=== PATIENT | male | born 1930 | race Caucasian/White ===

== ENCOUNTER 2017-09-16 10:01 | Inpatient (IN) | payer MEDICARE, OTHER ==
[~2017-09-16] VITALS: Ht 167.6 cm; Wt 77.1 kg
--- NOTE | 2017-09-16 10:10 | NUR ---
PT IS IN ROOM #1B. DR GIVENS EVALUATED THE PT.
[2017-09-16] MEDS ORDERED: ATENOLOL 50 MG PO (10:11)
[2017-09-16] MEDS ORDERED: BENAZEPRIL 40 MG PO (10:11)
[2017-09-16] MEDS ORDERED: ASPI81TA31 PO (10:13)
[2017-09-16] MEDS ORDERED: MAG HYDROX/AL HYDROX/SIMETH 30 ML LIQUID UDC PO ONE (10:30)
[2017-09-16] MEDS ORDERED: PANTOPRAZOLE SODIUM 40 MG TABLET.DR PO ONE ×2 (10:30→10:57)
[2017-09-16] MEDS ORDERED: ASPIRIN 81 MG TAB.CHEW PO ONE ×2 (10:30)
[2017-09-16] MEDS ORDERED: ASPIRIN 81 MG TAB.CHEW ONE (10:56)
[2017-09-16] MEDS ORDERED: MAG HYDROX/AL HYDROX/SIMETH 30 ML LIQUID UDC ONE (10:56)
[2017-09-16 11:02] LABS: BASOPHILS % (AUTO) 0.7 % (0.0-2.0); EOSINOPHILS # (AUTO) 0.1 K/uL (0.0-0.7); EOSINOPHILS % (AUTO) 3.2 % (0.0-7.0); HEMATOCRIT 35.9 % (40-50); HEMOGLOBIN 12.1 G/DL (14.0-18.0); LYMPHOCYTES # (AUTO) 0.6 K/UL (0.8-4.8); LYMPHOCYTES % (AUTO) 17.3 % (20.5-51.5); MEAN CORPUSCULAR HEMOGLOBIN 30.3 UUG (27.0-31.0); MEAN CORPUSCULAR HGB CONC 34 g/dL (32.0-37.0); MEAN CORPUSCULAR VOLUME 90.3 FL (82.0-92.0); MONOCYTES # (AUTO) 0.5 K/UL (0.1-1.30); MONOCYTES % (AUTO) 13.2 % (0.0-11.0); NEUTROPHILS # (AUTO) 2.2 K/UL (1.8-8.9); NEUTROPHILS % (AUTO) 65.6 % (38.5-71.5); PLATELET COUNT (AUTO) 188 K/UL (150-450); RED BLOOD CELL COUNT(AUTO) 3.98 MIL/UL (4.7-6.1); WHITE BLOOD COUNT (AUTO) 3.4 K/UL (4.0-11.2)
[2017-09-16 11:04] LABS: CARBON DIOXIDE 29 mmol/L (21-32); CHLORIDE 105 mmol/L (98-107); CREATININE 1.1 mg/dL (0.6-1.3); GLUCOSE 110 mg/dL (74-106); POTASSIUM 3.9 mmol/L (3.5-5.1); UREA NITROGEN, BLOOD 25 mg/dL (7-18)
[2017-09-16 11:17] LABS: ALANINE AMINOTRANSFERASE 19 U/L (16-63); ALKALINE PHOSPHATASE 90 U/L (50-136); ASPARTATE AMINOTRANSFERASE 20 U/L (15-37); BILIRUBIN,DIRECT 0.2 mg/dL (0.0-0.2); BILIRUBIN,TOTAL 0.8 mg/dL (0.2-1.0); TOTAL PROTEIN, SERUM 6.4 g/dL (6.4-8.2)
[2017-09-16] MEDS ORDERED: ONDANSETRON 4 MG/2 ML VIAL IV PRN (12:15)
[2017-09-16] MEDS ORDERED: MORPHINE SULFATE 2 MG/1 ML DISP.SYRIN IV PRN ×2 (12:15→16:15)
[2017-09-16] MEDS ORDERED: NITROGLYCERIN 0.4 MG/TAB BOTTLE SL PRN (12:15)
[2017-09-16] MEDS ORDERED: ACETAMINOPHEN 325 MG TABLET PO PRN (12:15)
--- NOTE | 2017-09-16 12:37 | NUR ---
received from ER per stretcher awake alert and oriented with c/o chest pain since Tuesday night but denies of chest pain now, oriented to bed control and call button- verbalized understanding, initial assessment done, tele applied, SB 58, no dizziness, daughter at bedside, 2D hospital pharmacy technician here, call light within reach
--- NOTE | 2017-09-16 12:37 | NUR ---
PT WAS TRANSFERED TO ROOM #208. REPORT WAS GIVEN TO PLANT MACHINIST.
[2017-09-16] MEDS ORDERED: MAG HYDROX/AL HYDROX/SIMETH 30 ML LIQUID UDC PO PRN (12:45)
[2017-09-16 13:00] VITALS: BP 130/63
--- NOTE | 2017-09-16 13:30 | NUR ---
PT eval done, ambulated in the hallwayl with PT
[2017-09-16 15:30] VITALS: BP 105/50
--- NOTE | 2017-09-16 15:30 | NUR ---
seen by Dr Adams- family at bedside
--- NOTE | 2017-09-16 18:11 | NUR ---
denies of chest pain, no shortness of breath, tele SB 58, all needs attended and met, call light within reach
[2017-09-16 19:15] VITALS: BP 109/56
[2017-09-16 19:25] VITALS: BP 109/56
--- NOTE | 2017-09-16 19:30 | NUR ---
nsg: pt received a/o x 4, no acute distress noted. denies chest pain or any discomfort. on RA, lungs sound clear to auscultate. tele, SR with hr 60's. ambulatory, steady. family at the bedside. cont to monitor.
[2017-09-17] VITALS: BP 101/54
--- NOTE | 2017-09-17 05:48 | NUR ---
NSG: NO ACUTE DISTRESS NOTED. DENIES DISCOMFORT. NO C/O OF CP. HR LOW 50 BUT MOSTLY HIGH 50'S TO 60'S. CONT TO MONITOR.
[2017-09-17 05:51] VITALS: BP 111/54
[2017-09-17] MEDS ORDERED: PANTOPRAZOLE SODIUM 40 MG TABLET.DR PO SCH (07:00)
[2017-09-17 07:14] LABS: ALANINE AMINOTRANSFERASE 15 U/L (16-63); ALKALINE PHOSPHATASE 82 U/L (50-136); ASPARTATE AMINOTRANSFERASE 19 U/L (15-37); CARBON DIOXIDE 28 mmol/L (21-32); CHLORIDE 105 mmol/L (98-107); CHOLESTEROL 141 mg/dL (<200); CREATININE 0.9 mg/dL (0.6-1.3); GLUCOSE 90 mg/dL (74-106); HDL CHOLESTEROL 38 mg/dL (40-60); MAGNESIUM 2.1 mg/dL (1.8-2.4); PHOSPHOROUS 3.2 mg/dL (2.5-4.9); POTASSIUM 3.9 mmol/L (3.5-5.1); TOTAL PROTEIN, SERUM 6.1 g/dL (6.4-8.2); TRIGLYCERIDES 123 MG/DL (30-150); UREA NITROGEN, BLOOD 22 mg/dL (7-18)
[2017-09-17 07:25] LABS: THYROID STIMULATING HORMONE 0.752 mIU/mL (0.358-3.740)
[2017-09-17 07:48] LABS: BASOPHILS % (AUTO) 0.5 % (0.0-2.0); EOSINOPHILS # (AUTO) 0.1 K/uL (0.0-0.7); EOSINOPHILS % (AUTO) 3.3 % (0.0-7.0); HEMATOCRIT 36.7 % (40-50); HEMOGLOBIN 12.3 G/DL (14.0-18.0); LYMPHOCYTES # (AUTO) 0.8 K/UL (0.8-4.8); LYMPHOCYTES % (AUTO) 22.3 % (20.5-51.5); MEAN CORPUSCULAR HEMOGLOBIN 30.3 UUG (27.0-31.0); MEAN CORPUSCULAR HGB CONC 33 g/dL (32.0-37.0); MEAN CORPUSCULAR VOLUME 90.6 FL (82.0-92.0); MONOCYTES # (AUTO) 0.5 K/UL (0.1-1.30); MONOCYTES % (AUTO) 12.6 % (0.0-11.0); NEUTROPHILS # (AUTO) 2.2 K/UL (1.8-8.9); NEUTROPHILS % (AUTO) 61.3 % (38.5-71.5); PLATELET COUNT (AUTO) 164 K/UL (150-450); RED BLOOD CELL COUNT(AUTO) 4.05 MIL/UL (4.7-6.1); WHITE BLOOD COUNT (AUTO) 3.6 K/UL (4.0-11.2)
[2017-09-17 08:33] LABS: *BILIRUBIN,URIN NEGATIVE (NEGATIVE); *BLOOD, URINE NEGATIVE (NEGATIVE); *CLARITY,URINE CLEAR (CLEAR); *COLOR,URINE YELLOW (YELLOW); *KETONES,URINE NEGATIVE (NEGATIVE); *PROTEIN,URINE NEGATIVE (NEGATIVE); *UROBILINOGEN,URINE 0.2 E.U./dl (NORMAL); LEUKOCYTE ESTERASE ,URINE NEGATIVE (NEGATIVE); NITRITE, URINE NEGATIVE (NEGATIVE); UGLUCOSE NEGATIVE (NEGATIVE)
[2017-09-17 08:53] LABS: BACTERIA,URINE NONE SEEN /HPF (NONE SEEN); RBC,URINE NONE SEEN /HPF (0-3); SQUAMOUS EPITHELIAL CELL,UR FEW /HPF (NONE SEEN); WBC,URINE 0-3 /HPF (0-3)
[2017-09-17] MEDS ORDERED: ATENOLOL 50 MG TABLET PO SCH (09:00)
[2017-09-17] MEDS ORDERED: FAMOTIDINE 20 MG TABLET PO SCH (09:00)
[2017-09-17] MEDS ORDERED: ATENOLOL 50 MG PO SCH (09:00)
[2017-09-17] MEDS ORDERED: ASPIRIN 81 MG TAB.CHEW PO SCH (09:00)
[2017-09-17] MEDS ORDERED: BENAZEPRIL 40 MG PO SCH (09:00)
[2017-09-17] MEDS ORDERED: BENAZEPRIL HCL 20 MG TABLET PO SCH (09:00)
[2017-09-17] MEDS ORDERED: MAG30ORA PO ×2 (09:41)
[2017-09-17] MEDS ORDERED: PANT40TA2 PO (09:41)
[2017-09-17 11:32] VITALS: BP 106/53
--- NOTE | 2017-09-17 12:35 | NUR ---
Patient was discharge in safe and stable condition, no s/s of distress noted. no c/o of chest pain or sob. IV and manager staffing was removed. Discharge instructions were explained and copy was given. Patient refused wheelchair and left accompanied by and son.
== END 2017-09-17 12:35 | disposition home or self-care (01) | DRG 392 ==
LOC: ER 10:06 → TELE 12:29
PROVIDERS: ADMIT Internal Medicine; ATTEND Internal Medicine
DX: K21.9 Gastro-esophageal reflux disease without esophagitis (principal); E88.09 Other disorders of plasma-protein metabolism, not elsewhere classified; I11.0 Hypertensive heart disease with heart failure; I50.32 Chronic diastolic (congestive) heart failure; D64.9 Anemia, unspecified; D72.819 Decreased white blood cell count, unspecified; M19.90 Unspecified osteoarthritis, unspecified site; Z87.891 Personal history of nicotine dependence; R73.9 Hyperglycemia, unspecified
CPT/HCPCS: 36415; 70030-TC; 71010; 83735; 84100; 84443; 85025; 85730; 87086; 93005; 93307; A4663; J7030